=== PATIENT | female | born 1940 | race Caucasian/White ===

== ENCOUNTER → 2016-04-09 | Outpatient (CLI) | payer MEDICARE ==
--- NOTE | 2016-04-10 11:12 | MM ---
Reason for exam: screening (asymptomatic). Last mammogram was performed 1 year and 6 months ago. History: Patient is postmenopausal. Physical Findings: A clinical breast exam by your physician is recommended on an annual basis and results should be correlated with mammographic findings. MG 3D Screening Mammo W/Cad Bilateral CC and MLO view(s) were taken. Prior study comparison: October 14, 2014, bilateral MG screening mammo w CAD. July 26, 2013, [facility] DIGITAL LEFT BREAST MAMMOGRAM w/CAD. There are scattered fibroglandular densities. No significant changes when compared with prior studies. ASSESSMENT: Benign, BI-RAD 2 RECOMMENDATION: Routine screening mammogram of both breasts in 1 year.
== END | disposition home or self-care (01) ==
LOC: RADMAMWWP 08:03
PROVIDERS: ATTEND Family Medicine
DX: Z12.31 Encounter for screening mammogram for malignant neoplasm of breast (principal)
CPT/HCPCS: 77052; 77063; G0202

== ENCOUNTER 2016-11-07 07:39 | Observation (INO) | payer MEDICARE ==
[2016-11-07] MEDS ORDERED: ONDANSETRON 4 MG/2 ML VIAL IVP STA ×2 (07:57→08:02)
[2016-11-07] MEDS ORDERED: MECLIZINE 25 MG TAB PO STA (08:02)
[2016-11-07] MEDS ORDERED: DIAZEPAM 5 MG/ML 2 ML SYRINGE IVP STA ×2 (08:03→09:55)
[2016-11-07] MEDS ORDERED: NITROGLYCERIN OINT 1 INCH/GM PACKET TOPICAL STA (08:03)
[2016-11-07] MEDS ORDERED: ASPIRIN 81 MG CHEW PO STA (08:03)
[2016-11-07] MEDS ORDERED: SODIUM CHLORIDE 0.9% 1,000 ML IV ONE (08:03)
--- NOTE | 2016-11-07 08:08 | ED ---
General Adult HPI - General Chief complaint: Chest Pain Stated complaint: CHEST DISCOMFORT,NAUSEA, DIZZINESS Time Seen by Provider: 11/07/16 07:40 Source: patient, RN notes reviewed Mode of arrival: wheelchair Limitations: no limitations - History of Present Illness Initial comments: This is a 76-year-old female presents emergency Department stating that for the last 2 weeks she has been off balance a little bit when she is walking down the hallway. Patient states that over the last few days she has noticed that moving her eyes to the right makes her little dizzy and it takes a little while for her to have revision back to normal when she does that. Patient does have history of vertigo. Patient denies any headache. Patient also complains of a two-week history of intermittent chest pressure. She states she has family history is positive for heart disease and she has high blood pressure. Patient states she's not having any chest pain now and when she does have the chest pain it lasts usually for a few minutes but there is no associated symptoms or radiation of the pain. Patient denies any abdominal pain. Patient states she does get nauseous and does vomit occasionally when she has the severe dizziness but that only been the last day. Patient denies any recent fever or chills. Patient denies any neck pain. - Related Data Home Medications Medication Instructions Recorded Confirmed amLODIPine BESYLATE [Norvasc] 5 mg PO DAILY 09/01/14 11/07/16 Cholecalciferol [Vitamin D3] 1,000 unit PO DAILY 11/07/16 11/07/16 Vitamin B Complex 1 cap PO DAILY 11/07/16 11/07/16 Allergies Allergy/AdvReac Type Severity Reaction Status Date / Time No Known Allergies Allergy Verified 11/07/16 08:21 Review of Systems ROS Statement: Those systems with pertinent positive or pertinent negative responses have been documented in the HPI. ROS Other: All systems not noted in ROS Statement are negative. Past Medical History Past Medical History: Eye Disorder, GERD/Reflux, Hypertension, Osteoarthritis ( OA) Additional Past Medical History / Comment(s): 09-01-14 ADMITTED TO [facility] WITH C/O DIZZINESS SINCE ALST NIGHT AND FEW EPISODES OF VOMITING.OTHER HX: HAYFEVER/SINUS , VARICOSE VEINS, HEMORRHOIDS History of Any Multi-Drug Resistant Organisms: None Reported Past Surgical History: Appendectomy, Hysterectomy Additional Past Surgical History / Comment(s): EILEEN CATARACTS, BLEPHEROPLASTY, COLONOSCOPY, D&C, LT OOPHERECTOMY, LT KNEE ARTHROSOCPY Additional Past Anesthesia/Blood Transfusion Reaction / Comment(s): VERTIGO Past Psychological History: No Psychological Hx Reported Smoking Status: Never smoker Past Alcohol Use History: Rare Past Drug Use History: None Reported - Past Family History Father Family Medical History: Congestive Heart Failure (CHF) Mother Family Medical History: Myocardial Infarction ([place]) Additional Family Medical History / Comment(s): TRIPLE BYPASS Sister(s) Family Medical History: Cancer, Chest Pain / Angina, Deep Vein Thrombosis (DVT) , GERD/Reflux, Osteoarthritis (OA), Pneumonia Additional Family Medical History / Comment(s): SARCOMA LT LEG General Exam - General Exam Comments Initial Comments: GENERAL: Patient is well-developed and well-nourished. Patient is nontoxic and well- hydrated and is in mild distress. ENT: Neck is soft and supple. No significant lymphadenopathy is noted. Oropharynx is clear. Moist mucous membranes. Neck has full range of motion without eliciting any pain. EYES: The sclera were anicteric and conjunctiva were pink and moist. Extraocular movements were intact and pupils were equal round and reactive to light. Eyelids were unremarkable. PULMONARY: Unlabored respirations. Good breath sounds bilaterally. No audible rales rhonchi or wheezing was noted. CARDIOVASCULAR: There is a regular rate and rhythm without any murmurs gallops or rubs. ABDOMEN: Soft and nontender with normal bowel sounds. No palpable organomegaly was noted. There is no palpable pulsatile mass. SKIN: Skin is clear with no lesions or rashes and otherwise unremarkable. NEUROLOGIC: Patient is alert and oriented x3. Cranial nerves II through XII are grossly intact. Motor and sensory are also intact. Normal speech, volume and content. Symmetrical smile. She was unable to perform cerebellar testing because it made her too dizzy and she became very nauseous MUSCULOSKELETAL: Normal extremities with adequate strength and full range of motion. No lower extremity swelling or edema. No calf tenderness. LYMPHATICS: No significant lymphadenopathy is noted PSYCHIATRIC: Normal psychiatric evaluation. Limitations: no limitations Course Vital Signs 11/07/16 11/07/16 11/07/16 07:41 08:55 09:35 Temperature 96.9 F L Pulse Rate 66 62 61 Respiratory 20 20 18 Rate Blood Pressure 166/77 176/78 142/67 O2 Sat by Pulse 100 98 97 Oximetry 11/07/16 11/07/16 10:07 11:21 Temperature 96.7 F L Pulse Rate 53 L 62 Respiratory 16 16 Rate Blood Pressure 133/71 130/65 O2 Sat by Pulse 97 98 Oximetry Medical Decision Making - Medical Decision Making EKG shows a normal sinus rhythm at 75 bpm ND interval is 126 QRS is 82 QT interval 412 QTC is 460 per patient's EKG shows no ST segment elevation or depression or T wave abnormalities are noted. Patient had episodes of chest pain while in the emergency department. Patient also continued to have severe vertigo to the point where she was unable to lay down even after multiple doses of medications and therefore the CAT scan was unable to be obtained at this time. Patient will be admitted the hospital I spoke with Dr. Lorenz I admitted the patient remaining orders. I consult to neurology and cardiology - Lab Data Result diagrams: 11/07/16 08:00 11/07/16 08:00 Lab Results 11/07/16 11/07/16 11/07/16 Range/Units 08:00 08:00 08:00 WBC 6.5 (3.8-10.6) k/uL RBC 4.78 (3.80-5.40) m/uL Hgb 14.6 (11.4-16.0) gm/dL Hct 42.7 (34.0-46.0) % MCV 89.3 (80.0-100.0) fL MCH 30.5 (25.0-35.0) pg MCHC 34.2 (31.0-37.0) g/dL RDW 13.0 (11.5-15.5) % Plt Count 234 (150-450) k/uL Neutrophils % 66 % Lymphocytes % 23 % Monocytes % 4 % Eosinophils % 4 % Basophils % 1 % Neutrophils # 4.3 (1.3-7.7) k/uL Lymphocytes # 1.5 (1.0-4.8) k/uL Monocytes # 0.3 (0-1.0) k/uL Eosinophils # 0.3 (0-0.7) k/uL Basophils # 0.1 (0-0.2) k/uL PT (9.0-12.0) sec INR (<1.2) APTT (22.0-30.0) sec Sodium 139 (137-145) mmol/L Potassium 3.8 (3.5-5.1) mmol/L Chloride 107 (98-107) mmol/L Carbon Dioxide 20 L (22-30) mmol/L Anion Gap 12 mmol/L BUN 13 (7-17) mg/dL Creatinine 0.69 (0.52-1.04) mg/dL Est GFR (MDRD) Af Amer >60 (>60 ml/min/1.73 sqM) Est GFR (MDRD) Non-Af >60 (>60 ml/min/1.73 sqM) Glucose 117 H (74-99) mg/dL Calcium 9.5 (8.4-10.2) mg/dL Magnesium 1.9 (1.6-2.3) mg/dL Total Bilirubin 0.6 (0.2-1.3) mg/dL AST 16 (14-36) U/L ALT 23 (9-52) U/L Alkaline Phosphatase 93 (38-126) U/L Total Creatine Kinase 42 (30-135) U/L CK-MB (CK-2) 0.5 (0.0-2.4) ng/mL CK-MB (CK-2) Rel Index 1.2 Troponin I <0.012 (0.000-0.034) ng/mL Total Protein 7.2 (6.3-8.2) g/dL Albumin 4.3 (3.5-5.0) g/dL 11/07/16 Range/Units 08:00 WBC (3.8-10.6) k/uL RBC (3.80-5.40) m/uL Hgb (11.4-16.0) gm/dL Hct (34.0-46.0) % MCV (80.0-100.0) fL MCH (25.0-35.0) pg MCHC (31.0-37.0) g/dL RDW (11.5-15.5) % Plt Count (150-450) k/uL Neutrophils % % Lymphocytes % % Monocytes % % Eosinophils % % Basophils % % Neutrophils # (1.3-7.7) k/uL Lymphocytes # (1.0-4.8) k/uL Monocytes # (0-1.0) k/uL Eosinophils # (0-0.7) k/uL Basophils # (0-0.2) k/uL PT 10.4 (9.0-12.0) sec INR 1.0 (<1.2) APTT 24.7 (22.0-30.0) sec Sodium (137-145) mmol/L Potassium (3.5-5.1) mmol/L Chloride (98-107) mmol/L Carbon Dioxide (22-30) mmol/L Anion Gap mmol/L BUN (7-17) mg/dL Creatinine (0.52-1.04) mg/dL Est GFR (MDRD) Af Amer (>60 ml/min/1.73 sqM) Est GFR (MDRD) Non-Af (>60 ml/min/1.73 sqM) Glucose (74-99) mg/dL Calcium (8.4-10.2) mg/dL Magnesium (1.6-2.3) mg/dL Total Bilirubin (0.2-1.3) mg/dL AST (14-36) U/L ALT (9-52) U/L Alkaline Phosphatase (38-126) U/L Total Creatine Kinase (30-135) U/L CK-MB (CK-2) (0.0-2.4) ng/mL CK-MB (CK-2) Rel Index Troponin I (0.000-0.034) ng/mL Total Protein (6.3-8.2) g/dL Albumin (3.5-5.0) g/dL Disposition Clinical Impression: Vertigo, Chest pain Disposition: ADMITTED IP TO THIS [facility] Referrals: Jose Elias Solorio MD [Primary Care Provider] - 1-2 days Time of Disposition: 11:58
[2016-11-07 08:17] LABS: Basophils # (A) 0.1 k/uL (0-0.2); Basophils % (A) 1 %; CH 30.2; Eosinophils # (A) 0.3 k/uL (0-0.7); Eosinophils % (A) 4 %; HCT 42.7 % (34.0-46.0); HDW 2.25; HGB 14.6 gm/dL (11.4-16.0); Luc # (Auto) 0.15; Luc % (Auto) 2; Lymphocytes # (A) 1.5 k/uL (1.0-4.8); Lymphocytes % (A) 23 %; MCH 30.5 pg (25.0-35.0); MCHC 34.2 g/dL (31.0-37.0); MCV 89.3 fL (80.0-100.0); Mean Platelet Volume 8.2; Monocytes # (A) 0.3 k/uL (0-1.0); Monocytes % (A) 4 %; Neutrophils # (A) 4.3 k/uL (1.3-7.7); Neutrophils % (A) 66 %; RBC 4.78 m/uL (3.80-5.40); WBC 6.5 k/uL (3.8-10.6); WBC (Perox) 6.27
[2016-11-07 08:30] LABS: ALT 23 U/L (9-52); AST 16 U/L (14-36); Alkaline Phosphatase 93 U/L (38-126); Anion Gap 12 mmol/L; Blood Urea Nitrogen 13 mg/dL (7-17); Calcium 9.5 mg/dL (8.4-10.2); Carbon Dioxide 20 mmol/L (22-30); Chloride 107 mmol/L (98-107); Glucose 117 mg/dL (74-99); Magnesium 1.9 mg/dL (1.6-2.3); Non-African American GFR(MDRD) >60 (>60 ml/min/1.73 sqM); Potassium 3.8 mmol/L (3.5-5.1); Sodium 139 mmol/L (137-145); Total Bilirubin 0.6 mg/dL (0.2-1.3); Total Protein 7.2 g/dL (6.3-8.2)
[2016-11-07 08:33] LABS: Partial Thromboplastin Time 24.7 sec (22.0-30.0)
[2016-11-07 08:38] LABS: Prothrombin Time 10.4 sec (9.0-12.0)
[2016-11-07 08:41] LABS: Creatine Kinase 42 U/L (30-135)
--- NOTE | 2016-11-07 08:44 | XR ---
EXAMINATION TYPE: XR chest 2V DATE OF EXAM: 11/07/2016 COMPARISON: NONE HISTORY: Chest tightness and dizziness TECHNIQUE: Frontal and lateral views of the chest are obtained. FINDINGS: There is eventration of right hemidiaphragm. There is no focal air space opacity, pleural e ffusion, or pneumothorax seen. The cardiac silhouette size is mildly enlarged. The osseous structu res are intact. IMPRESSION: Mild cardiomegaly without acute pulmonary process.
[2016-11-07 08:55] LABS: Creatine Kinase MB 0.5 ng/mL (0.0-2.4); Troponin I <0.012 ng/mL (0.000-0.034)
[2016-11-07] MEDS ORDERED: METOCLOPRAMIDE 5 MG/ML 2 ML VIAL IVP STA (09:19)
[2016-11-07] MEDS ORDERED: NITROGLYCERIN SL TABS 0.4 MG TAB SUBLINGUAL PRN (10:54)
[2016-11-07] MEDS: NITROGLYCERIN OINT 1 INCH/GM PACKET TOPICAL SCH ×2 (15:48→19:56)
[2016-11-07 16:47] LABS: Creatine Kinase 35 U/L (30-135)
[2016-11-07 17:00] LABS: Creatine Kinase MB 0.4 ng/mL (0.0-2.4); Troponin I <0.012 ng/mL (0.000-0.034)
--- NOTE | 2016-11-07 17:41 | P.DS ---
Providers Date of admission: 11/07/16 10:56 Attending physician: Lorna Lorenz Consults: 11/07/16 10:54 Consult Physician Urgent Consulting Provider: [facility] Consult Reason/Comments: Chest pain Do you want consulting provider notified?: Yes Primary care physician: Jose Elias Solorio Hospital Course: Please refer to HPI for further details Plan - Discharge Summary New Discharge Prescriptions: New Meclizine [Antivert] 25 mg PO TID PRN #0 tab PRN Reason: Vertigo Omeprazole [PriLOSEC] 20 mg PO AC-BRKFST #14 capsule. Continue amLODIPine BESYLATE [Norvasc] 5 mg PO DAILY Cholecalciferol [Vitamin D3] 1,000 unit PO DAILY Vitamin B Complex 1 cap PO DAILY Discharge Medication List amLODIPine BESYLATE [Norvasc] 5 mg PO DAILY 09/01/14 [History] Cholecalciferol [Vitamin D3] 1,000 unit PO DAILY 11/07/16 [History] Meclizine [Antivert] 25 mg PO TID PRN #0 tab 11/07/16 [Rx] Omeprazole [PriLOSEC] 20 mg PO AC-BRKFST #14 capsule. 11/07/16 [Rx] Vitamin B Complex 1 cap PO DAILY 11/07/16 [History] Follow up Appointment(s)/Referral(s): Jose Elias Solorio MD [Primary Care Provider] - 3 Days Discharge Disposition: HOME SELF-CARE
--- NOTE | 2016-11-07 17:41 | P.HPIM ---
History of Present Illness Patient is a pleasant 71-year-old female came in with complaints of vertigo which started today patient's symptoms get worse with head movement. Constant. Patient had similar episodes in the past she doesn't know the diagnosis for her vertigo. Patient was complaining of ringing in the ears as well. Patient denied any recent sinusitis-like symptoms. Patient denied any fullness in the ears. Patient denied any deafness or hearing problems. Patient denied any focal weakness. Patient was having nausea vomiting because of which they're unable to perform CT scan of the head. Patient was also complaining of epigastric abdominal discomfort. I do have concern about mild gaseous visual reflux disease because of which am discharging her on 14 days of Prilosec. And the patient underwent the EKG which was negative acute sets of troponins are negative. We also ruled out acute coronary syndromes. I do not believe patient will need any further testing for coronary artery disease. Can get stress test down the line. I did perform [place]-Halspike maneuver is positive for benign positional vertigo with the nystagmus with the maneuver and resolution and complete resolution of symptoms and patient will be monitored for couple more hours and will be discharged with meclizine on an as-needed basis. Review of Systems REVIEW OF SYSTEMS: CONSTITUTIONAL: No fever, no malaise, no fatigue. HEENT: No recent visual problems or hearing problems. Denied any sore throat. CARDIOVASCULAR: No chest pain, orthopnea, PND, no palpitations, no syncope. PULMONARY: No shortness of breath, no cough, no hemoptysis. GASTROINTESTINAL: No diarrhea, Normoactive bowel sounds. NEUROLOGICAL: No headaches, no weakness, no numbness. HEMATOLOGICAL: Denies any bleeding or petechiae. GENITOURINARY: Denies any burning micturition, frequency, or urgency. MUSCULOSKELETAL/RHEUMATOLOGICAL: Denies any joint pain, swelling, or any muscle pain. ENDOCRINE: Denies any polyuria or polydipsia. The rest of the 14-point review of systems is negative. Past Medical History Past Medical History: Deep Vein Thrombosis (DVT), Eye Disorder, GERD/Reflux, Hypertension, Osteoarthritis (OA) Additional Past Medical History / Comment(s): Vertigo, DVT L leg while , bilateral varicosities, hayfever, sinus problems. History of Any Multi-Drug Resistant Organisms: None Reported Past Surgical History: Appendectomy, Hysterectomy Additional Past Surgical History / Comment(s): EILEEN CATARACTS WITH LENS IMPLANTS , EILEEN BLEPHEROPLASTY, COLONOSCOPY, D&C, LT OOPHERECTOMY D/T BLOOD CLOT ON OVARY PER PT, LT KNEE ARTHROSOCPY Additional Past Anesthesia/Blood Transfusion Reaction / Comment(s): VERTIGO Smoking Status: Never smoker - Past Family History Father Family Medical History: Congestive Heart Failure (CHF) Mother Family Medical History: Coronary Artery Disease (CAD), Myocardial Infarction ([place] ) Additional Family Medical History / Comment(s): TRIPLE BYPASS. HAD CT IN HER 70' S. Sister(s) Family Medical History: Cancer, Chest Pain / Angina, Deep Vein Thrombosis (DVT) , GERD/Reflux, Osteoarthritis (OA), Pneumonia Additional Family Medical History / Comment(s): SARCOMA LT LEG Medications and Allergies Home Medications Medication Instructions Recorded Confirmed Type amLODIPine BESYLATE [Norvasc] 5 mg PO DAILY 09/01/14 11/07/16 History Cholecalciferol [Vitamin D3] 1,000 unit PO DAILY 11/07/16 11/07/16 History Vitamin B Complex 1 cap PO DAILY 11/07/16 11/07/16 History Allergies Allergy/AdvReac Type Severity Reaction Status Date / Time No Known Allergies Allergy Verified 11/07/16 08:21 Physical Exam Vitals: Vital Signs Temp Pulse Pulse Resp BP BP Pulse Ox 11/07/16 15:33 97.6 F 66 18 134/68 96 11/07/16 13:18 97.5 F L 63 18 147/72 11/07/16 13:01 98.3 F 63 20 135/65 98 11/07/16 11:21 96.7 F L 62 16 130/65 98 11/07/16 10:07 53 L 16 133/71 97 11/07/16 09:35 61 18 142/67 97 11/07/16 08:55 62 20 176/78 98 11/07/16 07:41 96.9 F L 66 20 166/77 100 Intake and Output 11/07/16 11/07/16 11/07/16 06:59 14:59 22:59 Other: Weight 79.9 kg Patient Weight 11/08/16 06:59 Weight 79.9 kg PHYSICAL EXAMINATION: GENERAL: The patient is alert and oriented x3, not in any acute distress. Well developed, well nourished. HEENT: Pupils are round and equally reacting to light. EOMI. No scleral icterus. No conjunctival pallor. Normocephalic, atraumatic. No pharyngeal erythema. No thyromegaly. CARDIOVASCULAR: S1 and S2 present. No murmurs, rubs, or gallops. PULMONARY: Chest is clear to auscultation, no wheezing or crackles. ABDOMEN: Soft, nontender, nondistended, normoactive bowel sounds. No palpable organomegaly. MUSCULOSKELETAL: No joint swelling or deformity. EXTREMITIES: No cyanosis, clubbing, or pedal edema. NEUROLOGICAL: Gross neurological examination did not reveal any focal deficits. SKIN: No rashes. Results CBC & Chem 7: 11/07/16 08:00 11/07/16 08:00 Labs: Abnormal Lab Results - Last 24 Hours (Table) 11/07/16 Range/Units 08:00 Carbon Dioxide 20 L (22-30) mmol/L Glucose 117 H (74-99) mg/dL Thrombosis Risk Factor Assmnt - Choose All That Apply Any of the Below Risk Factors Present?: Yes Each Factor Represents 1 point: Obesity (BMI >25) Other Risk Factors: Yes Each Risk Factor Represents 3 Points: Age 75 years or older Other congenital or acquired thrombophilia - If yes, enter type in comment: No Thrombosis Risk Factor Assessment Total Risk Factor Score: 4 Thrombosis Risk Factor Assessment Level: Moderate Risk Assessment and Plan Plan: 1 vertigo: Vertigo secondary to benign positional vertigo with complete resolution of symptoms with [place] Halspike maneuver. Plan as mentioned and told history. Next and #2 epigastric abdominal pain: Rule out acute coronary syndromes patient will be discharged on empiric Prilosec for 14 days. #3 hypertension: Fairly controlled blood pressures continue with amlodipine. #4 osteoarthritis #5 DVT in the past not on anti-correlation at this time.
[2016-11-07] MEDS: MECLIZINE 25 MG TAB PO PRN ×2 (17:46→21:01)
[2016-11-07 19:46] VITALS: RESP 16
[2016-11-07 20:38] LABS: Creatine Kinase 39 U/L (30-135)
[2016-11-07 20:52] LABS: Creatine Kinase MB 0.4 ng/mL (0.0-2.4); Troponin I <0.012 ng/mL (0.000-0.034)
[2016-11-07] MEDS: ONDANSETRON 4 MG/2 ML VIAL IVP PRN (21:01)
[2016-11-07] MEDS: METOCLOPRAMIDE 5 MG/ML 2 ML VIAL IVP SCH (21:01)
[2016-11-07] MEDS: SODIUM CHLORIDE 0.9% 1,000 ML IV SCH (21:02)
[2016-11-07 22:39] LABS: Cholesterol 199 mg/dL (<200); HDL Cholesterol 53 mg/dL (40-60)
[2016-11-08] MEDS: NITROGLYCERIN OINT 1 INCH/GM PACKET TOPICAL SCH ×3 (00:15→12:17)
[2016-11-08] MEDS: METOCLOPRAMIDE 5 MG/ML 2 ML VIAL IVP SCH ×3 (02:44→13:41)
[2016-11-08] MEDS: ONDANSETRON 4 MG/2 ML VIAL IVP PRN (02:44)
[2016-11-08] MEDS ORDERED: ASPIRIN 325 MG TAB PO SCH (09:00)
[2016-11-08] MEDS ORDERED: amLODIPine 5 MG TAB PO SCH (09:00)
--- NOTE | 2016-11-08 10:13 | P.CRDCN ---
History of Present Illness Consult date: 11/08/16 History of present illness: This is a 76-year-old female with significant history for hypertension and vertigo. She presents to the emergency room with complaints of extreme dizziness with nausea and vomiting. She states she also has been having chest tightness 2 weeks that is intermittent in nature. She attributes this to her bra being too tight. She has seen a pet adoption counselor once a few years ago but does not recall why. Review of first-degree records reveals she was seen for similar complaints. She denies history of coronary artery disease or MT. She states her last stress test was a few years back when she was at the cardiology office and she was unable to complete the test. She continues to complain of ongoing positional vertigo. She has been unable to complete an ordered computed tomography scan of her brain because she cannot lay flat due to nausea or vomiting. Upon examination she became acutely dizzy when I asked her to sit up to examine her lungs. Chest tightness has resolved. EKG shows a normal sinus mechanism with heart rate in the 70s no acute ST changes. Chest x- ray is negative for an acute cardiopulmonary process with mild cardiomegaly. Labs indicated a hemoglobin of 14.6, potassium 3.8, magnesium 1.9, BUS and 13 creatinine 0.69 and troponins are negative 3. She currently takes Norvasc 5 mg and Antivert 25 mg. Her daughter is at the bedside and states she is noncompliant with her Antivert. And she has suffered from this for over 8 years. Review of Systems REVIEW OF SYSTEMS: Patient denies any chest discomfort. No shortness of breath. No diaphoresis. She denies headache, blurred vision or double vision. No dyspnea on exertion. Patient denies any stomach discomfort. No hematochezia. No hematemesis. Denies any black stools or blood in his stools. No syncope. No palpitations. No cough. No recent fever or chills. Denies dysuria or hematuria. No muscle weakness or numbness. Past Medical History Past Medical History: Deep Vein Thrombosis (DVT), Eye Disorder, GERD/Reflux, Hypertension, Osteoarthritis (OA) Additional Past Medical History / Comment(s): Vertigo, DVT L leg while , bilateral varicosities, hayfever, sinus problems. History of Any Multi-Drug Resistant Organisms: None Reported Past Surgical History: Appendectomy, Hysterectomy Additional Past Surgical History / Comment(s): EILEEN CATARACTS WITH LENS IMPLANTS , EILEEN BLEPHEROPLASTY, COLONOSCOPY, D&C, LT OOPHERECTOMY D/T BLOOD CLOT ON OVARY PER PT, LT KNEE ARTHROSOCPY Additional Past Anesthesia/Blood Transfusion Reaction / Comment(s): VERTIGO Smoking Status: Never smoker - Past Family History Father Family Medical History: Congestive Heart Failure (CHF) Mother Family Medical History: Coronary Artery Disease (CAD), Myocardial Infarction (MT ) Additional Family Medical History / Comment(s): [employer]LE [employer]. HAD MT IN HER 70' S. Sister(s) Family Medical History: Cancer, Chest Pain / Angina, Deep Vein Thrombosis (DVT) , GERD/Reflux, Osteoarthritis (OA), Pneumonia Additional Family Medical History / Comment(s): SARCOMA LT LEG Medications and Allergies Home Medications Medication Instructions Recorded Confirmed Type amLODIPine BESYLATE [Norvasc] 5 mg PO DAILY 09/01/14 11/07/16 History Cholecalciferol [Vitamin D3] 1,000 unit PO DAILY 11/07/16 11/07/16 History Vitamin B Complex 1 cap PO DAILY 11/07/16 11/07/16 History Allergies Allergy/AdvReac Type Severity Reaction Status Date / Time No Known Allergies Allergy Verified 11/07/16 08:21 Physical Exam Vitals: Vital Signs Temp Pulse Pulse Resp BP BP Pulse Ox 11/08/16 04:00 52 L 16 11/08/16 03:54 98.3 F 68 16 116/65 95 11/08/16 00:00 54 L 16 11/07/16 23:45 98.2 F 62 16 106/54 97 11/07/16 20:51 95 11/07/16 20:00 62 16 11/07/16 19:43 98.4 F 62 16 141/69 98 11/07/16 15:33 97.6 F 66 18 134/68 96 11/07/16 13:18 97.5 F L 63 18 147/72 11/07/16 13:01 98.3 F 63 20 135/65 98 11/07/16 11:21 96.7 F L 62 16 130/65 98 11/07/16 10:07 53 L 16 133/71 97 11/07/16 09:35 61 18 142/67 97 11/07/16 08:55 62 20 176/78 98 Intake and Output 11/07/16 11/08/16 11/08/16 22:59 06:59 14:59 Intake Total 200 750 Balance 200 750 Intake: Intake, IV Titration 150 600 Amount Sodium Chloride 0.9% 1, 150 600 000 ml @ 75 mls/hr IV . [id number] ANA Rx#:[id number] Oral 50 150 Other: Voiding Method Toilet Toilet # Voids 1 1 GENERAL: This is a 76-year-old [] in no apparent distress at the time of my examination. HEENT: Head is atraumatic, normocephalic. Pupils are equal, round. Sclerae anicteric. Conjunctivae are clear. Mucous membranes of the mouth are moist. Neck is supple. There is no jugular venous distention. No carotid bruit is heard. LUNGS: Clear to auscultation and precussion. No chest wall tenderness is noted on palpation or with deep breathing. HEART: Regular rate and rhythm without murmurs, rubs or gallops. S1 and S2 heard. ABDOMEN: Soft, nontender. Bowel sounds are heard. No organomegaly noted. EXTREMITIES: 2+ peripheral pulses with no evidence of peripheral edema and no calf tenderness noted]. NEUROLOGIC: Patient is awake, alert and oriented x3. Results 11/07/16 08:00 11/07/16 08:00 Cardiac Enzymes 11/07/16 11/07/16 11/07/16 Range/Units 08:00 08:00 15:53 AST 16 (14-36) U/L CK-MB (CK-2) 0.5 0.4 (0.0-2.4) ng/mL Troponin I <0.012 <0.012 (0.000-0.034) ng/mL 11/07/16 Range/Units 19:51 AST (14-36) U/L CK-MB (CK-2) 0.4 (0.0-2.4) ng/mL Troponin I <0.012 (0.000-0.034) ng/mL Coagulation 11/07/16 Range/Units 08:00 PT 10.4 (9.0-12.0) sec APTT 24.7 (22.0-30.0) sec Lipids 11/07/16 Range/Units 08:00 Triglycerides 102 (<150) mg/dL Cholesterol 199 (<200) mg/dL HDL Cholesterol 53 (40-60) mg/dL CBC 11/07/16 Range/Units 08:00 WBC 6.5 (3.8-10.6) k/uL RBC 4.78 (3.80-5.40) m/uL Hgb 14.6 (11.4-16.0) gm/dL Hct 42.7 (34.0-46.0) % Plt Count 234 (150-450) k/uL Comprehensive Metabolic Panel 11/07/16 Range/Units 08:00 Sodium 139 (137-145) mmol/L Potassium 3.8 (3.5-5.1) mmol/L Chloride 107 (98-107) mmol/L Carbon Dioxide 20 L (22-30) mmol/L BUN 13 (7-17) mg/dL Creatinine 0.69 (0.52-1.04) mg/dL Glucose 117 H (74-99) mg/dL Calcium 9.5 (8.4-10.2) mg/dL AST 16 (14-36) U/L ALT 23 (9-52) U/L Alkaline Phosphatase 93 (38-126) U/L Total Protein 7.2 (6.3-8.2) g/dL Albumin 4.3 (3.5-5.0) g/dL Current Medications Generic Name Dose Route Start Last Admin Trade Name Freq PRN Reason Stop Dose Admin Amlodipine Besylate 5 mg 11/08/16 09:00 Norvasc PO DAILY ANA Aspirin 325 mg 11/08/16 09:00 Aspirin PO DAILY [facility] Sodium Chloride 1,000 mls @ 75 mls/hr 11/07/16 20:15 11/07/16 21:02 Saline 0.9% IV 75 mls/hr .[id number] ANA Administration Meclizine HCl 25 mg 11/07/16 11:22 11/07/16 21:01 Antivert PO 25 mg TID PRN Administration Vertigo Metoclopramide HCl 5 mg 11/07/16 20:15 11/08/16 06:24 Reglan IVP Not Given Q6HR [facility] Nitroglycerin 1 inch 11/07/16 12:00 11/08/16 06:24 Nitro-Bid Oint TOPICAL Not Given Q6HR [facility] Nitroglycerin 0.4 mg 11/07/16 10:54 Nitrostat SUBLINGUAL Q5M PRN Chest Pain Ondansetron HCl 4 mg 11/07/16 20:10 11/08/16 02:44 Zofran IVP 4 mg Q6HR PRN Administration Nausea And Vomiting Intake and Output 11/07/16 11/08/16 11/08/16 22:59 06:59 14:59 Intake Total 200 750 Balance 200 750 Intake: Intake, IV Titration 150 600 Amount Sodium Chloride 0.9% 1, 150 600 000 ml @ 75 mls/hr IV . [id number] [facility] Rx#:[id number] Oral 50 150 Other: Voiding Method Toilet Toilet # Voids 1 1 11/07/16 08:00 11/07/16 08:00 - EKG Interpretation EKG: sinus rhythm, normal QRS, normal ST/T, no acute changes Assessment and Plan Plan: ASSESSMENT 1. Acute dizziness with nausea and vomiting, history of vertigo on Antivert. 2. Chest tightness, atypical 3. History of hypertension PLAN At this time we recommend that the patient proceed with a CAT scan of the brain as soon as she is able. We will perform an echocardiogram to assess left ventricular function. At this time we would not proceed with an inpatient stress test due to her acute dizziness. She should follow-up in the office of Dr. WILVER Daniels in 2-3 weeks for an outpatient stress test and further evaluation. Thank you for this consultation. Nurse Practitioner note has been reviewed, I agree with a documented findings and plan of care. Patient was seen and examined.
--- NOTE | 2016-11-08 10:37 | CT ---
EXAMINATION TYPE: CT brain wo con DATE OF EXAM: 11/08/2016 COMPARISON: 09/01/2014 HISTORY: 76-year-old female Intractable vomiting TECHNIQUE: Examination was done in axial plane without intravenous contrast. Coronal and sagittal r econstructions performed. CT DLP: 1121 mGycm Automated exposure control for dose reduction was used. FINDINGS: There is no evidence of acute intracranial hemorrhage, acute ischemic changes, mass, mass-effect, or extra-axial fluid collection. There is no effacement of cerebral sulci or basal subarachnoid cister ns. There is no hydrocephalus. There is no midline shift. Jacob-white matter distinction is preserv ed. Dense physiologic calcifications along the anterior falx. Subtle basal ganglionic calcifications are also benign. Paranasal sinuses and mastoid air cells are well pneumatized. Orbits and globes are intact. IMPRESSION: No acute intracranial abnormality seen.
[2016-11-08] MEDS: SODIUM CHLORIDE 0.9% 1,000 ML IV SCH (10:45)
[2016-11-08] MEDS: MECLIZINE 25 MG TAB PO PRN (11:06)
[2016-11-08 12:07] VITALS: BP 157/72; PULSE 69; TEMP 98.4
[2016-11-08] MEDS ORDERED: PANTOPRAZOLE 40 MG/10 ML VIAL IVP ONE (12:45)
--- NOTE | 2016-11-08 15:38 | P.DS ---
Providers Date of admission: 11/07/16 10:56 Attending physician: Lorna Lorenz Consults: 11/07/16 10:54 Consult Physician Urgent Consulting Provider: [facility] Consult Reason/Comments: Chest pain Do you want consulting provider notified?: Yes [facility]: Patient is a pleasant 71-year-old female came in with complaints of vertigo which started today patient's symptoms get worse with head movement. Constant. Patient had similar episodes in the past she doesn't know the diagnosis for her vertigo. Patient was complaining of ringing in the ears as well. Patient denied any recent sinusitis-like symptoms. Patient denied any fullness in the ears. Patient denied any deafness or hearing problems. Patient denied any focal weakness. Patient was having nausea vomiting because of which they're unable to perform CT scan of the head. Patient was also complaining of epigastric abdominal discomfort. I do have concern about mild gaseous visual reflux disease because of which am discharging her on 14 days of Prilosec. And the patient underwent the EKG which was negative acute sets of troponins are negative. We also ruled out acute coronary syndromes. I do not believe patient will need any further testing for coronary artery disease. Can get stress test down the line. I did perform Dyess-Halspike maneuver is positive for benign positional vertigo with the nystagmus with the maneuver and resolution and complete resolution of symptoms and patient will be monitored for couple more hours and will be discharged with meclizine on an as-needed basis. 11/08/2016 Patient is feeling much better today patient had an episode of dizziness yesterday which improved later. And patient were discharged today. Patient was evaluated cardiology and did an echocardiogram which was essentially within normal limits and the they're recommending outpatient stress test. Esophageal details please refer to my dictation of H&P from yesterday. PHYSICAL EXAMINATION: GENERAL: The patient is alert and oriented x3, not in any acute distress. Well developed, well nourished. HEENT: Pupils are round and equally reacting to light. EOMI. No scleral icterus. No conjunctival pallor. Normocephalic, atraumatic. No pharyngeal erythema. No thyromegaly. CARDIOVASCULAR: S1 and S2 present. No murmurs, rubs, or gallops. PULMONARY: Chest is clear to auscultation, no wheezing or crackles. ABDOMEN: Soft, nontender, nondistended, normoactive bowel sounds. No palpable organomegaly. MUSCULOSKELETAL: No joint swelling or deformity. EXTREMITIES: No cyanosis, clubbing, or pedal edema. NEUROLOGICAL: Gross neurological examination did not reveal any focal deficits. SKIN: No rashes. Plan - Discharge Summary New Discharge Prescriptions: New Meclizine [Antivert] 25 mg PO TID PRN #0 tab PRN Reason: Vertigo Omeprazole [PriLOSEC] 20 mg PO AC-BRKFST #14 capsule. Continue amLODIPine BESYLATE [Norvasc] 5 mg PO DAILY Cholecalciferol [Vitamin D3] 1,000 unit PO DAILY Vitamin B Complex 1 cap PO DAILY Discharge Medication List amLODIPine BESYLATE [Norvasc] 5 mg PO DAILY 09/01/14 [History] Cholecalciferol [Vitamin D3] 1,000 unit PO DAILY 11/07/16 [History] Meclizine [Antivert] 25 mg PO TID PRN #0 tab 11/07/16 [Rx] Omeprazole [PriLOSEC] 20 mg PO AC-BRKFST #14 capsule. 11/07/16 [Rx] Vitamin B Complex 1 cap PO DAILY 11/07/16 [History] Follow up Appointment(s)/Referral(s): Meryl Daniels MD [STAFF PHYSICIAN] - 2 Weeks Jose Elias Solorio MD [Primary Care Provider] - 3 Days Patient Instructions/Handouts: Vertigo (GEN) Discharge Disposition: HOME SELF-CARE
--- NOTE | 2016-11-08 19:41 | ECHOF ---
Referral Reason:chest tightness MEASUREMENTS -------- HEIGHT: 162.6 cm WEIGHT: 79.8 kg BP: 142/72 IVSd: 1.0 cm (0.6 - 1.1) LVIDd: 3.7 cm (3.9 - 5.3) LVPWd: 1.1 cm (0.6 - 1.1) IVSs: 1.7 cm LVIDs: 1.7 cm LVPWs: 1.6 cm Ao Diam: 3.8 cm (2.0 - 3.7) AV Cusp: 2.0 cm (1.5 - 2.6) LA Diam: 3.1 cm (2.7 - 3.8) MV EXCURSION: 14.967 mm (> 18.000) MV EF SLOPE: 61 mm/s (70 - 150) EPSS: 0.5 cm MV E Aamir: 0.83 m/s MV DecT: 226 ms MV A Aamir: 0.82 m/s MV E/A Ratio: 1.01 RAP: 5.00 mmHg RVSP: 7.19 mmHg FINDINGS -------- Sinus rhythm. This was a technically good study. Left ventricular wall thickness is normal. Overall left ventricular systolic function is normal with, an EF between 55 - 60 %. The right ventricle is normal in size and function. The left atrium is normal in size. The right atrium is normal in size. The aortic valve is trileaflet, and appears structurally normal. No aortic stenosis or regurgitation. The mitral valve leaflets are mildly thickened. Mild mitral regurgitation is present. Mild tricuspid regurgitation present. The right ventricular systolic pressure, as measured by Doppler, is 7.19mmHg. Pulmonic valve appears structurally normal. The aortic root is mildy dilated. The pericardium is normal. CONCLUSIONS -------- 1. Sinus rhythm. 2. Pulmonic valve appears structurally normal. 3. The pericardium is normal. 4. This was a technically good study. 5. Left ventricular wall thickness is normal. 6. The right ventricle is normal in size and function. 7. The left atrium is normal in size. 8. The right atrium is normal in size. 9. The aortic valve is trileaflet, and appears structurally normal. No aortic stenosis or regurgitation. 10. The mitral valve leaflets are mildly thickened. 11. The right ventricular systolic pressure, as measured by Doppler, is 7.19mmHg. INSTITUTIONAL COOK: Brianne Kent RDCS
== END 2016-11-08 15:36 | disposition home or self-care (01) ==
LOC: EC 07:39 → 3OBS 10:56 → INTOOBSV 10:56 → 3OBS 12:38
PROVIDERS: ADMIT Hospitalist; ATTEND Hospitalist
DX: R07.89 Other chest pain (principal); I10 Essential (primary) hypertension; H81.10 Benign paroxysmal vertigo, unspecified ear; R11.2 Nausea with vomiting, unspecified; K21.9 Gastro-esophageal reflux disease without esophagitis; M19.90 Unspecified osteoarthritis, unspecified site; H26.9 Unspecified cataract; R10.13 Epigastric pain; Z91.19 Patient's noncompliance with other medical treatment and regimen; Z82.49 Family history of ischemic heart disease and other diseases of the circulatory system; Z79.899 Other long term (current) drug therapy; Z86.718 Personal history of other venous thrombosis and embolism
CPT/HCPCS: 96375 ×2; 96376 ×3; 96361 ×2; 96374; 99285; 36415; 94760; 93005; 93306; 80061; 80053; 82550; 82553; 83735; 84484; 85025; 85610; 85730; 71020; 70450; G0378 ×2; J2765 ×2; J3360; J2405 ×2; C9113

== ENCOUNTER → 2017-06-06 | Outpatient (CLI) | payer MEDICARE ==
--- NOTE | 2017-06-09 10:52 | MM ---
Reason for exam: screening (asymptomatic). Last mammogram was performed 1 year and 2 months ago. History: Patient is postmenopausal. Physical Findings: A clinical breast exam by your physician is recommended on an annual basis and results should be correlated with mammographic findings. MG 3D Screening Mammo W/Cad Bilateral CC and MLO view(s) were taken. Prior study comparison: April 09, 2016, bilateral MG 3d screening mammo w/cad. October 14, 2014, bilateral MG screening mammo w CAD. There are scattered fibroglandular densities. There are benign appearing bilateral stable calcifications. No suspicious abnormality. No significant changes when compared with prior studies. ASSESSMENT: Benign, BI-RAD 2 RECOMMENDATION: Routine screening mammogram of both breasts in 1 year.
== END | disposition home or self-care (01) ==
LOC: RADMAMWWP 08:19
PROVIDERS: ATTEND Family Medicine
DX: Z12.31 Encounter for screening mammogram for malignant neoplasm of breast (principal)
CPT/HCPCS: 77063; 77067

== ENCOUNTER → 2018-10-14 | Outpatient (CLI) | payer MEDICARE ==
--- NOTE | 2018-10-15 11:37 | MM ---
Reason for exam: screening (asymptomatic). Last mammogram was performed 1 year and 4 months ago. History: Patient is postmenopausal. Physical Findings: A clinical breast exam by your physician is recommended on an annual basis and results should be correlated with mammographic findings. MG 3D Screening Mammo W/Cad Bilateral CC and MLO view(s) were taken. Prior study comparison: June 06, 2017, bilateral MG 3d screening mammo w/cad. April 09, 2016, bilateral MG 3d screening mammo w/cad. There are scattered fibroglandular densities. There are benign appearing round vascular calcifications bilaterally. There is no discrete abnormality. Bilateral skin lesions noted. ASSESSMENT: Benign, BI-RAD 2 RECOMMENDATION: Routine screening mammogram of both breasts in 1 year.
== END | disposition home or self-care (01) ==
LOC: RADMAMWWP 07:25
PROVIDERS: ATTEND Family Medicine
DX: Z12.31 Encounter for screening mammogram for malignant neoplasm of breast (principal)
CPT/HCPCS: 77063; 77067

== ENCOUNTER → 2020-09-15 | Outpatient (CLI) | payer MEDICARE ==
--- NOTE | 2020-09-19 09:17 | MM ---
Reason for exam: screening (asymptomatic). Last mammogram was performed 1 year and 11 months ago. History: Patient is postmenopausal and history of other cancer. Physical Findings: A clinical breast exam by your physician is recommended on an annual basis and results should be correlated with mammographic findings. MG 3D Screening Mammo W/Cad Bilateral CC and MLO view(s) were taken. Prior study comparison: October 14, 2018, bilateral MG 3d screening mammo w/cad. June 06, 2017, bilateral MG 3d screening mammo w/cad. April 09, 2016, bilateral MG 3d screening mammo w/cad. October 14, 2014, bilateral MG screening mammo w CAD. There are scattered fibroglandular densities. There is chronic nodularity in the left breast. Benign oil cyst and vascular calcifications. No significant changes when compared with prior studies. ASSESSMENT: Negative, BI-RAD 1 RECOMMENDATION: Routine screening mammogram of both breasts in 1 year.
== END | disposition home or self-care (01) ==
LOC: RADMAMWWP 07:33
PROVIDERS: ATTEND Family Medicine
DX: Z12.31 Encounter for screening mammogram for malignant neoplasm of breast (principal); Z78.0 Asymptomatic menopausal state
CPT/HCPCS: 77063; 77067

== ENCOUNTER → 2021-10-18 | Outpatient (CLI) | payer MEDICARE ==
--- NOTE | 2021-10-19 13:34 | MM ---
Reason for Exam: Screening (asymptomatic). Last mammogram was performed 1 year(s) and 1 month(s) ago. Patient History: Menarche at age 12. First Full-Term at age 20. Left ovary removed at age 38. Hysterectomy at age 38. Postmenopausal. Other cancer. Risk Values: Lupis 5 year model risk: 1.3%. NCI Lifetime model risk: 2.0%. Prior Study Comparison: 06/06/2017 Bilateral Screening Mammogram, [facility]. 10/14/2018 Bilateral Screening Mammogram, [facility]. 09/15/2020 Bilateral Screening Mammogram, [facility]. Tissue Density: There are scattered fibroglandular densities. Findings: Analyzed By CAD. There is no suspicious group of microcalcifications or new suspicious mass in either breast. Stable chronic nodularity in both breasts. Benign oil cyst and vascular calcifications. Overall Assessment: Benign, BI-RAD 2 Management: Screening Mammogram of both breasts in 1 year. A clinical breast exam by your physician is recommended on an annual basis and results should be correlated with mammographic findings. Electronically signed and approved by: Mina Balbuena D.O.
== END | disposition home or self-care (01) ==
LOC: RADMAMWWP 13:49
PROVIDERS: ATTEND Family Medicine
DX: Z12.31 Encounter for screening mammogram for malignant neoplasm of breast (principal); Z78.0 Asymptomatic menopausal state
CPT/HCPCS: 77063; 77067